=== PATIENT | female | born 1975 | race Caucasian/White ===

== ENCOUNTER 2017-03-08 13:17 | Emergency (ER) | payer SELFPAY ==
--- NOTE | 2017-03-19 20:03 | ER ---
ADMIT: 03/08/2017 RM/LOC: ER [facility] MR#: [id number] [address] [id number] DEEPAK PARKINSON [facility] [place] [address] Emergency Room Report SEX: F AGE: 41 : 1975 CORRECTED: 03/09/201758 DERRELLS DATE: 03/08/2017 ADDENDUM: DISPOSITION: I did discuss the findings on exam as well as x-ray studies today with the patient. I informed her there is nothing concerning on exam today, and that her x-ray shows the moderate stool burden. I encouraged her to use MiraLax [id number] as directed on the packaging as needed for constipation. She should use Tylenol 1 g p.o. every 4-6 hours as needed for pain. She is to follow up with Dr. Theo Santos as needed if she is not improving. She can certainly return to the department with any worsening signs or symptoms. Questions were sought and answered to the best of my ability to the patient's satisfaction. She was discharged in stable condition. KAREN Cottrell / Erik Gomez MD / kalyn JOB #: [id number] CC: Silviano Abbott MD, Attending Physician Bill Santos MD, Family Physician CORRECTED: 03/09/2017957 DJS
--- NOTE | 2017-03-21 03:51 | ER ---
ADMIT: 03/08/2017 RM/LOC: ER [facility] MR#: [id number] [address] [id number] DEEPAK PARKINSON [address] [place] [id number] Emergency Room Report SEX: F AGE: 41 : 1975 DATE: 03/08/2017 CHIEF COMPLAINT: Abdominal pain. HISTORY OF PRESENT ILLNESS: This is a pleasant 41-year-old female, who presents to the ER for abdominal pain. The patient states beginning approximately 5 months ago, she began having some intermittent abdominal pain. She states the pain is typically periumbilical with radiation sometimes to the right, sometimes to the left. She states that she feels like there is a ball just to the left side of her umbilicus. She states that this pain did acutely got worse yesterday prompting her arrival for evaluation in the ER today. She had a friend who told her about the possible obstruction for which she is concerned today and requests imaging exam to rule this out. She states her pain is moderate, rates as a 5/10. Denies any fevers, chills, nausea, vomiting, diarrhea, chest pain, or constipation. States her last bowel movement was yesterday and regular. Denies any urinary symptoms. Last menstrual period was February 09, 2017. She does have history of gallstones and is status post cholecystectomy. Denies any other abdominal surgeries. She does admit to some decrease in appetite and early satiety. Denies any aggravating or alleviating factors. COURSE IN THE EMERGENCY ROOM: The patient is seen and examined. She is afebrile and nontoxic. Abdominal exam is somewhat unremarkable, has some vague tenderness periumbilically. She does have a small, mobile, rubbery mass less than 1 cm in size just to the left of her umbilicus which I believe likely to be a lipoma. I did proceed to get a KUB, reviewed with Dr. Gomez showing a moderate stool burden, but no air-fluid levels or other concerning signs for a bowel obstruction or acute process. IMPRESSION: 1. Chronic abdominal pain. 2. Constipation. 3. Lipoma less than 1 cm in size. DISPOSITION: I did discuss findings of exam as well as the x-ray with the patient. KAREN Cottrell / Erik Gomez MD / kalyn JOB #: [id number] CC: Silviano Abbott MD, Attending Physician UNKNOWN, Family Physician
== END 2017-03-08 14:22 | disposition home or self-care (01) ==
LOC: ER 13:17
DX: K59.00 Constipation, unspecified (principal); G89.29 Other chronic pain; R10.9 Unspecified abdominal pain; D17.9 Benign lipomatous neoplasm, unspecified

== ENCOUNTER 2017-04-03 19:08 | Emergency (ER) | payer OTHER ==
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
== END 2017-04-03 20:03 | disposition home or self-care (01) ==
LOC: ER 19:08
DX: S20.219A Contusion of unspecified front wall of thorax, initial encounter (principal); Z90.49 Acquired absence of other specified parts of digestive tract; V49.40XA Driver injured in collision with unspecified motor vehicles in traffic accident, initial encounter